=== PATIENT | female | born 2000 | race Caucasian/White ===

== ENCOUNTER → 2023-07-06 | Outpatient (REF) | payer MEDICAID, OTHER ==
[2023-07-06 17:17] LABS: BASO # 0.1 10^3/uL (0.0-0.2); BASO % 0.6 % (0.0-1.0); EOS # 0.8 10^3/uL (0.0-0.5); EOS % 7.8 % (0.0-3.0); HEMATOCRIT 42.5 % (36.0-47.0); HEMOGLOBIN 13.7 g/dl (12.0-15.5); LYMPH # 2.3 10^3/uL (1.5-5.0); MEAN CORPUSCULAR HEMOGLOBIN 27.8 pg (27.0-33.0); MEAN CORPUSCULAR HGB CONC 32.2 g/dl (32.0-36.5); MEAN CORPUSCULAR VOLUME 86.4 fl (80.0-96.0); MONO # 0.8 10^3/uL (0.0-0.8); MONO % 8.4 % (2.0-8.0); NEUTROPHILS # 5.6 10^3/uL (1.5-8.5); NEUTROPHILS % 58.9 % (36.0-66.0); PLATELET COUNT, AUTOMATED 285 10^3/uL (150-450); RED BLOOD COUNT 4.92 10^6/uL (4.00-5.40); WHITE BLOOD COUNT 9.6 10^3/uL (4.0-10.0)
[2023-07-06 17:21] LABS: ERYTHROCYTE SEDIMENTATION RATE 24 mm/hr (0-20)
[2023-07-06 17:43] LABS: C REACTIVE PROTEIN QUANTITATIV 0.6 MG/DL (<1.0)
[2023-07-06 17:45] LABS: PERCENT SATURATION 15.2 % (13.2-45.0); PHOSPHORUS LEVEL 4.9 MG/DL (2.5-4.9)
[2023-07-06 17:46] LABS: TOTAL 25(OH) VITAMIN D 12.3 NG/ML (20.0-100.0)
[2023-07-10 16:08] LABS: ANTI-U1 RNP AB <20 Units (<20); BETA-2 GLYCOPROTEIN I ABY IGA <9 (0-25); BETA-2 GLYCOPROTEIN I ABY IGG <9 (0-20); BETA-2 GLYCOPROTEIN I ABY IGM <9 (0-32); CARDIOLIPIN IGA ANTIBODY <9 APL U/mL (0-11); CARDIOLIPIN IGG ANTIBODY <9 GPL U/mL (0-14); CARDIOLIPIN IGM ANTIBODY <9 MPL U/mL (0-12)
== END ==
LOC: M SFHCRHEU 15:19
PROVIDERS: ATTEND Internal Medicine
DX: R76.8 Other specified abnormal immunological findings in serum (principal); M25.50 Pain in unspecified joint; M79.10 Myalgia, unspecified site; N96 Recurrent pregnancy loss